=== PATIENT | male | born 1970 | race Caucasian/White ===

== ENCOUNTER 2017-03-09 10:08 | Outpatient (CLI) | payer BC ==
[~2017-03-09 10:08] MED LIST: BACTRIM DS TAB1 EAC1 ORAL; KEFLEX500 MG ORAL
--- NOTE | 2017-03-10 14:43 | Diagnostic Imaging Report ---
APPROVED REPORT CPT Code: 01912 Present Symptoms Lower Extremity Pain: BILATERAL: Imaging reveals a patent deep venous system bilaterally. There is no evidence of thrombus within the femoral, popliteal or tibial segments. The greater saphenous veins are also within normal limits. Doppler indicates normal spontaneous flow within these segments.
== END 2017-03-09 12:08 | disposition home or self-care (01) ==
LOC: VAS 10:08
DX: R22.43 Localized swelling, mass and lump, lower limb, bilateral (principal)
CPT/HCPCS: 93970

== ENCOUNTER 2019-03-21 10:49 | Outpatient (CLI) | payer BC | END 2019-03-21 12:49 | disposition home or self-care (01) | LOC: VAS 10:49 | DX: R60.9 Edema, unspecified (principal) | CPT/HCPCS: 93922; 93925; 93930; 93970 ==